=== PATIENT | female | born 1995 | race Caucasian/White ===

== ENCOUNTER 2022-01-31 07:56 | Outpatient (CLI) | payer OTHER ==
[~2022-01-31 07:56] MED LIST: BENTYL 20MG TAB20 MG PO; MACROBID 100 M100 MG PO; REGLAN10 MG PO
[2022-02-01] MEDS ORDERED: BENTYL 10MG CAP10 MG PO (14:28)
[2022-02-01] MEDS ORDERED: ZOFRAN 4 MG TAB4 MG PO (14:28)
== END 2022-01-31 11:00 | disposition home or self-care (01) ==
LOC: GENOP 07:56
DX: O99.891 Other specified diseases and conditions complicating pregnancy (principal); R10.9 Unspecified abdominal pain; R19.7 Diarrhea, unspecified; Z3A.23 23 weeks gestation of pregnancy
CPT/HCPCS: 81001; G0463

== ENCOUNTER 2022-01-31 19:33 | Outpatient (CLI) | payer OTHER ==
[2022-01-31 20:25] LABS: HEMOGLOBIN 12.8 gm/dl (12.3-15.3); RED BLOOD COUNT 4.57 M/UL (4.00-5.10); WHITE BLOOD COUNT 10.1 K/UL (4.5-11.0)
[2022-01-31 20:50] LABS: BUN/CREATININE RATIO 9 (0-10)
[2022-02-01] MEDS ORDERED: ZOFRAN 4 MG TAB4 MG PO (14:28)
[2022-02-01] MEDS ORDERED: BENTYL 10MG CAP10 MG PO (14:28)
== END 2022-02-01 16:06 | disposition home or self-care (01) ==
LOC: GENOP 19:33
PROVIDERS: Obstetrics & Gynecology
DX: O21.2 Late vomiting of pregnancy (principal); O99.891 Other specified diseases and conditions complicating pregnancy; R10.9 Unspecified abdominal pain; R19.7 Diarrhea, unspecified; Z3A.23 23 weeks gestation of pregnancy
CPT/HCPCS: 80053; 82150; 83690; 85025; 96360; 96361; 96367; 96374; C9113; J0595; J2405; J2550; J7121

== ENCOUNTER → 2022-05-15 | Outpatient (CLI) | payer OTHER ==
[~2022-05-15] MED LIST changes: +BENTYL 10MG CAP10 MG PO; +ZOFRAN 4 MG TAB4 MG PO
== END ==
LOC: GENOP 17:12
DX: O47.1 False labor at or after 37 completed weeks of gestation (principal); Z3A.38 38 weeks gestation of pregnancy
CPT/HCPCS: 59025